=== PATIENT | male | born 1970 | race Caucasian/White ===

== ENCOUNTER → 2021-03-22 | Outpatient (CLI) | payer OTHER ==
[~2021-03-22] MED LIST: HYDACE5 PO; LORA1 PO; NAPR550 PO; [UNRECOGNIZED DRUG - OTHER]
== END | disposition home or self-care (01) ==
LOC: LAB SHORT 13:25
DX: J02.9 Acute pharyngitis, unspecified (principal)
CPT/HCPCS: 87081

== ENCOUNTER 2024-11-21 08:59 | Day surgery (SDC) | payer OTHER ==
[~2024-11-21] VITALS: Ht 180.3 cm; Wt 75.9 kg
[2024-11-21] MEDS ORDERED: LISI20 (10:00)
[2024-11-21] MEDS ORDERED: ATOR40TA (10:00)
[2024-11-21] MEDS ORDERED: NS 1,000 ML IV ONE (11:22)
[2024-11-21 11:44] VITALS: BP 132/77
== END 2024-11-21 11:45 | disposition home or self-care (01) ==
LOC: ORSCSDS 08:59
PROVIDERS: Surgery
PROC: 0DBN8ZX Excision of Sigmoid Colon, Via Natural or Artificial Opening Endoscopic, Diagnostic (ICD-10-PCS; principal; 2024-11-21 10:30)
DX: Z12.11 Encounter for screening for malignant neoplasm of colon (principal); D12.5 Benign neoplasm of sigmoid colon; K57.30 Diverticulosis of large intestine without perforation or abscess without bleeding; K64.8 Other hemorrhoids; I10 Essential (primary) hypertension; E78.5 Hyperlipidemia, unspecified; F17.210 Nicotine dependence, cigarettes, uncomplicated; Z79.899 Other long term (current) drug therapy
CPT/HCPCS: 88305; J2704; J7120